=== PATIENT | female | born 1970 | race Caucasian/White ===

== ENCOUNTER 2023-12-24 13:45 | Emergency (ER) | payer OTHER ==
[2023-12-24 13:51] VITALS: BMI 25.8
[2023-12-24 14:28] LABS: URINE APPEARANCE CLEAR; URINE BILIRUBIN NEGATIVE (NEGATIVE); URINE COLOR YELLOW; URINE GLUCOSE (UA) NEGATIVE (NEGATIVE); URINE KETONE NEGATIVE (NEGATIVE); URINE LEUK ESTERASE NEGATIVE (NEGATIVE); URINE NITRITE NEGATIVE (NEGATIVE); URINE PROTEIN NEGATIVE (NEGATIVE); URINE UROBILINOGEN 0.2 mg/dL (0.2-1.0)
[2023-12-24] MEDS ORDERED: ACETAMINOPHEN INJECTION 100 ML IVPB ONE (14:42)
[2023-12-24 14:47] LABS: BASO % 1.6 % (0-2.0); EOS % 8.6 % (0-4.5); HEMATOCRIT 41.4 % (32.4-45.2); LYMPH % 41.7 % (8-40); MCH 32.1 pg (25.7-33.7); MCHC 33.8 g/dl (32.0-36.0); MEAN CELL VOLUME 94.9 fl (80-96); MONO % 9.9 % (3.8-10.2); NEUT % 38.2 % (42.8-82.8); PLATELET COUNT 292 10^3/uL (134-434); RBC 4.37 M/mm3 (3.60-5.2); RDW 13.6 % (11.6-15.6); WHITE BLOOD COUNT 7.7 K/mm3 (4.0-10.0)
[2023-12-24] MEDS: ACETAMINOPHEN 1000 MG/100 ML BAG IVPB ONE (14:56)
[2023-12-24 15:12] LABS: POTASSIUM 3.6 mmol/L (3.5-5.1)
[2023-12-24 15:14] LABS: CALCIUM 8.4 mg/dL (8.5-10.1)
[2023-12-24 15:15] LABS: ALBUMIN 3.6 g/dl (3.4-5.0)
[2023-12-24 15:17] LABS: CREATININE 0.7 mg/dL (0.55-1.3)
[2023-12-24 15:19] LABS: BILIRUBIN,TOTAL 0.6 mg/dL (0.2-1); TOT PROT 6.9 g/dl (6.4-8.2)
[2023-12-24] MEDS: LACTATED RINGERS SOLUTION 1000 ML INFUS.BAG IV ONE (15:30)
[2023-12-24] MEDS: KETOROLAC TROMETHAMINE 15 MG/ML VIAL IVPUSH ONE (16:52)
[2023-12-24] MEDS ORDERED: LIDOCAINE 4% PATCH TP ONE (17:04)
[2023-12-24] MEDS: LIDOCAINE 5% TOPICAL PATCH TP ONE (17:07)
[2023-12-24 17:30] VITALS: BP 131/88; PULSE 70; RESP 15; TEMP 97.9
[2023-12-24] MEDS ORDERED: LIDOCAINE PATCH REMOVAL MC SCH (22:00)
== END 2023-12-24 17:40 | disposition home or self-care (01) ==
LOC: JER 13:45
PROC: 3E033NZ Introduction of Analgesics, Hypnotics, Sedatives into Peripheral Vein, Percutaneous Approach (ICD-10-PCS; principal; 2023-12-24)
DX: R10.30 Lower abdominal pain, unspecified (principal); R19.7 Diarrhea, unspecified; R39.15 Urgency of urination; R35.0 Frequency of micturition; M54.50 Low back pain, unspecified
CPT/HCPCS: 36415; 74177-TC; 80053; 81003; 83690; 85025; 87086; 99285-25; J0131; Q9967

== ENCOUNTER 2024-03-28 19:11 | Observation (INO) | payer OTHER ==
[2024-03-28] MEDS ORDERED: ONDANSETRON 4 MG/2 ML VIAL ONE (20:28)
[2024-03-28] MEDS ORDERED: ACETAMINOPHEN INJECTION 100 ML IVPB ONE (20:28)
[2024-03-28] MEDS ORDERED: PANTOPRAZOLE SODIUM 40 MG VIAL ONE (20:29)
[2024-03-28] MEDS: SODIUM CHLORIDE 0.9% 500 ML INFUS.BAG IV ONE ×2 (20:45→20:47)
[2024-03-28] MEDS: PANTOPRAZOLE SODIUM 40 MG VIAL IVPUSH ONE (20:45)
[2024-03-28] MEDS: ACETAMINOPHEN 1000 MG/100 ML BAG IVPB ONE (20:45)
[2024-03-28] MEDS: ONDANSETRON 4 MG/2 ML VIAL IVPUSH ONE (20:45)
[2024-03-28 20:50] LABS: BASO % 0.4 % (0-2.0); HEMATOCRIT 48.1 % (32.4-45.2); HEMOGLOBIN 16.6 GM/dL (10.7-15.3); LYMPH % 4.5 % (8-40); MCH 32.9 pg (25.7-33.7); MCHC 34.5 g/dl (32.0-36.0); MEAN CELL VOLUME 95.3 fl (80-96); MEAN PLT VOLUME 8.9 fl (7.5-11.1); MONO % 6.4 % (3.8-10.2); NEUT % 88.7 % (42.8-82.8); PLATELET COUNT 249 10^3/uL (134-434); RBC 5.05 M/mm3 (3.60-5.2); RDW 14.5 % (11.6-15.6); WHITE BLOOD COUNT 13.1 K/mm3 (4.0-10.0)
[2024-03-28 20:57] LABS: INR 0.99 (0.83-1.09); PROTHROMBIN TIME (PATIENT) 11.2 SEC (9.7-13.0)
[2024-03-28 21:00] LABS: ACTIVATED PTT 35.2 SECONDS (25.2-36.5)
[2024-03-28 21:07] LABS: CALCIUM 10.5 mg/dL (8.5-10.1)
[2024-03-28 21:08] LABS: ALBUMIN 4.8 g/dl (3.4-5.0); BLOOD UREA NITROGEN 25.7 mg/dL (7-18)
[2024-03-28 21:11] LABS: CREATININE 1.1 mg/dL (0.55-1.3)
[2024-03-28 21:13] LABS: BILIRUBIN,TOTAL 2.4 mg/dL (0.2-1); TOT PROT 9.4 g/dl (6.4-8.2)
[2024-03-29] MEDS: SODIUM CHLORIDE 1,000 ML IV SCH (02:13)
[2024-03-29 03:38] VITALS: BMI 25.1
[2024-03-29] MEDS: FOLIC ACID INJECTION - 1 MG, THIAMINE HCL 100 MG, MULTIVIT INJECTION ADULT 10 ML in SOD... IVPB ONE (06:02)
[2024-03-29] MEDS: INSULIN ASPART SLIDING SCALE (NOVOLOG) 1 VIAL SQ SCH (06:11)
[2024-03-29 07:19] LABS: HEMATOCRIT 42.6 % (32.4-45.2); HEMOGLOBIN 14.5 GM/dL (10.7-15.3); MCH 32.8 pg (25.7-33.7); MEAN CELL VOLUME 96.5 fl (80-96); MEAN PLT VOLUME 9.1 fl (7.5-11.1); PLATELET COUNT 202 10^3/uL (134-434); RBC 4.41 M/mm3 (3.60-5.2); RDW 13.9 % (11.6-15.6); WHITE BLOOD COUNT 9.9 K/mm3 (4.0-10.0)
[2024-03-29 07:44] LABS: POTASSIUM 3.3 mmol/L (3.5-5.1)
[2024-03-29 07:47] LABS: BLOOD UREA NITROGEN 17.4 mg/dL (7-18); CALCIUM 9.3 mg/dL (8.5-10.1); MAGNESIUM 2.5 mg/dL (1.8-2.4)
[2024-03-29 07:48] LABS: ALBUMIN 3.9 g/dl (3.4-5.0)
[2024-03-29 07:50] LABS: CREATININE 0.7 mg/dL (0.55-1.3)
[2024-03-29 07:52] LABS: BILIRUBIN,TOTAL 2.2 mg/dL (0.2-1); TOT PROT 7.5 g/dl (6.4-8.2)
[2024-03-29] MEDS: HYDROCHLOROTHIAZIDE 12.5 MG CAPSULE (FP) PO SCH (09:40)
[2024-03-29] MEDS: POTASSIUM CHLORIDE ORAL LIQUID 20 MEQ/15 ML PO ONE (09:40)
[2024-03-29] MEDS: VALSARTAN 80 MG TABLET PO SCH (09:40)
[2024-03-29] MEDS: FOLIC ACID 1 MG TABLET (FP) PO SCH (09:40)
[2024-03-29] MEDS: THIAMINE 100 MG TABLET PO SCH (09:40)
[2024-03-29] MEDS: PANTOPRAZOLE SODIUM 40 MG VIAL IVPUSH SCH (09:41)
[2024-03-29 09:49] LABS: EPI CELLS 30 /uL (0-25.1); HYALINE CASTS 9 /uL (0-3.1); URINE APPEARANCE CLOUDY; URINE BACTERIA 14 /uL (0-1359); URINE BILIRUBIN NEGATIVE (NEGATIVE); URINE COLOR YELLOW; URINE GLUCOSE (UA) NEGATIVE (NEGATIVE); URINE KETONE 3+ (NEGATIVE); URINE LEUK ESTERASE NEGATIVE (NEGATIVE); URINE NITRITE NEGATIVE (NEGATIVE); URINE PROTEIN 1+ (NEGATIVE); URINE RBC 26 /uL (0-23.9); URINE UROBILINOGEN 0.2 mg/dL (0.2-1.0); URINE WBC 32 /uL (0-25.8)
[2024-03-29] MEDS: KCL 10 MEQ IVPB 10 MEQ/100 ML INFUS.BAG IVPB SCH (10:49)
[2024-03-29 12:50] LABS: BILIRUBIN,DIRECT 0.5 mg/dL (0.0-0.2)
[2024-03-29 17:25] LABS: COCAINE, UR NEGATIVE (NEGATIVE); METHADONE, UR NEGATIVE (NEGATIVE); PHENCYCLIDINE,URINE NEGATIVE (NEGATIVE); URINE BARBITURATES NEGATIVE (NEGATIVE)
[2024-03-29 17:37] LABS: OPIATES, URI NEGATIVE (NEGATIVE); URINE AMPHETAMINES NEGATIVE (NEGATIVE); URINE BENZODIAZEPINES NEGATIVE (NEGATIVE)
[2024-03-29 18:50] VITALS: RESP 18
[2024-03-29] MEDS: MAG HYDROX/AL HYDROX/SIMETH 30 ML UNIT-DOSE CUP PO PRN (19:59)
[2024-03-30] MEDS: PANTOPRAZOLE 20 MG TABLET PO SCH (10:23)
[2024-03-30 11:26] LABS: BASO % 0.3 % (0-2.0); EOS % 0.8 % (0-4.5); HEMATOCRIT 38.7 % (32.4-45.2); HEMOGLOBIN 13.5 GM/dL (10.7-15.3); MCH 32.8 pg (25.7-33.7); MCHC 34.8 g/dl (32.0-36.0); MEAN CELL VOLUME 94.2 fl (80-96); MEAN PLT VOLUME 9.4 fl (7.5-11.1); MONO % 8.1 % (3.8-10.2); NEUT % 78.8 % (42.8-82.8); PLATELET COUNT 183 10^3/uL (134-434); RBC 4.12 M/mm3 (3.60-5.2); RDW 13.9 % (11.6-15.6); WHITE BLOOD COUNT 9.9 K/mm3 (4.0-10.0)
[2024-03-30 12:03] LABS: CHLORIDE 100 mmol/L (98-107); POTASSIUM 3.2 mmol/L (3.5-5.1); SODIUM 135 mmol/L (136-145)
[2024-03-30 12:07] LABS: CALCIUM 9.2 mg/dL (8.5-10.1)
[2024-03-30 12:08] LABS: ALBUMIN 3.6 g/dl (3.4-5.0); ANION GAP 9 mmol/L (4-13); BLOOD UREA NITROGEN 11.4 mg/dL (7-18); CO2 26 mmol/L (21-32); GLUCOSE,RANDOM 98 mg/dL (74-106)
[2024-03-30 12:10] LABS: BILIRUBIN,DIRECT 0.5 mg/dL (0.0-0.2)
[2024-03-30 12:11] LABS: CREATININE 0.5 mg/dL (0.55-1.3); SGOT/AST 35 U/L (15-37); SGPT/ALT 32 U/L (13-61)
[2024-03-30 12:12] LABS: TOT PROT 6.8 g/dl (6.4-8.2)
[2024-03-30 12:13] LABS: BILIRUBIN,TOTAL 2.6 mg/dL (0.2-1)
[2024-03-30 12:14] LABS: ALK PHOS 71 U/L (45-117); PHOSPHOROUS 0.7 mg/dL (2.5-4.9)
[2024-03-30] MEDS: POTASSIUM PHOSPHATE 45 MM in SODIUM CHLORIDE 500 ML IVPB ONE ×2 (14:29)
[2024-03-31 07:30] LABS: BASO % 0.6 % (0-2.0); EOS % 1.5 % (0-4.5); HEMATOCRIT 37.7 % (32.4-45.2); HEMOGLOBIN 12.9 GM/dL (10.7-15.3); LYMPH % 20.3 % (8-40); MCH 32.5 pg (25.7-33.7); MCHC 34.1 g/dl (32.0-36.0); MEAN CELL VOLUME 95.2 fl (80-96); MEAN PLT VOLUME 9.6 fl (7.5-11.1); MONO % 10.1 % (3.8-10.2); NEUT % 67.5 % (42.8-82.8); PLATELET COUNT 169 10^3/uL (134-434); RBC 3.96 M/mm3 (3.60-5.2); RDW 13.5 % (11.6-15.6); WHITE BLOOD COUNT 7.7 K/mm3 (4.0-10.0)
[2024-03-31 07:54] LABS: POTASSIUM 3.1 mmol/L (3.5-5.1)
[2024-03-31 08:01] LABS: ALBUMIN 3.5 g/dl (3.4-5.0); CALCIUM 8.4 mg/dL (8.5-10.1)
[2024-03-31 08:02] LABS: BLOOD UREA NITROGEN 8.5 mg/dL (7-18); MAGNESIUM 2.1 mg/dL (1.8-2.4)
[2024-03-31 08:03] LABS: CREATININE 0.4 mg/dL (0.55-1.3); PHOSPHOROUS 2.8 mg/dL (2.5-4.9)
[2024-03-31 08:05] LABS: BILIRUBIN,TOTAL 1.6 mg/dL (0.2-1); TOT PROT 6.6 g/dl (6.4-8.2)
[2024-03-31] MEDS: POTASSIUM CHLORIDE ORAL LIQUID 20 MEQ/15 ML PO ONE (09:12)
[2024-03-31 09:17] VITALS: BP 116/85; PULSE 105; TEMP 98.2
== END 2024-03-31 10:43 | disposition home or self-care (01) ==
LOC: JER 19:11 → JERBED 22:52 → UNDOADMOB 22:52 → J4S 03-29 03:02
PROVIDERS: ADMIT Internal Medicine; ATTEND Internal Medicine
PROC: 3E033GC Introduction of Other Therapeutic Substance into Peripheral Vein, Percutaneous Approach (ICD-10-PCS; principal; 2024-03-28)
PROC: 3E033NZ Introduction of Analgesics, Hypnotics, Sedatives into Peripheral Vein, Percutaneous Approach (ICD-10-PCS; 2024-03-28)
PROC: 3E0337Z Introduction of Electrolytic and Water Balance Substance into Peripheral Vein, Percutaneous Approach (ICD-10-PCS; 2024-03-28)
DX: R11.2 Nausea with vomiting, unspecified (principal); E87.6 Hypokalemia; E86.0 Dehydration; E83.39 Other disorders of phosphorus metabolism; M72.0 Palmar fascial fibromatosis [Dupuytren]; I10 Essential (primary) hypertension; K59.00 Constipation, unspecified; K46.9 Unspecified abdominal hernia without obstruction or gangrene; Z86.16 Personal history of COVID-19
CPT/HCPCS: 0241U-QW; 36415; 71045-TC-FY; 80053; 80307; 81003; 82247; 82248; 82271; 82962; 83036; 83735; 84100; 84484; 85025; 85027; 85610; 85730; 86850; 86900; 86901; 93005; 93010; 96361; 96365; 96367; 96375; 96376; 99285-25; G0378; J0131